=== PATIENT | female | born 1980 | race Hispanic/Latino ===

== ENCOUNTER → 2017-08-04 14:39 | Outpatient (CLI) | payer OTHER, MEDICAID, SELFPAY | DX: Z34.82 Encounter for supervision of other normal pregnancy, second trimester (principal); Z3A.16 16 weeks gestation of pregnancy; Z53.9 Procedure and treatment not carried out, unspecified reason ==

== ENCOUNTER → 2017-08-04 15:28 | Outpatient (CLI) | payer OTHER, MEDICAID, SELFPAY ==
[2017-08-04 15:42] LABS: Bacteria Urine None Seen; RBC Urine None Seen (0-5/HPF); WBC Urine None Seen (0-5/HPF)
[2017-08-04 16:19] LABS: Appearance Urine UA CLEAR; Bilirubin Urine UA NEGATIVE (NEGATIVE); Color Urine UA YELLOW; Glucose Urine UA NEGATIVE (Negative); Ketones Urine UA NEGATIVE (NEGATIVE); Leukocyte Esterase Urine UA NEGATIVE (NEGATIVE); Nitrite Urine UA Negative (Negative); Occult Blood Urine UA NEGATIVE (Negative); Protein Urine UA NEGATIVE (Negative); Specific Gravity Urine UA <=1.005 (1.000-1.035); Urobilinogen Urine UA 0.2 E.U./dL (0.2)
[2017-08-04 16:27] LABS: Prothrombin Time 10.7 SECONDS (10.1-12.7)
[2017-08-04 16:28] LABS: Add Manual Diff / Slide Review NO; Basophils Percent Auto 0.8 % (0-2); Eosinophils Percent Auto 6.8 % (2-4); Hematocrit 38.1 % (36-46); Hemoglobin 13.2 g/dL (12.0-16.0); Lymphocytes Percent Auto 16.3 % (25-40); Mean Corpuscular HGB Conc 34.6 % (30-36); Mean Corpuscular Hemoglobin 31.2 PG (26-34); Monocytes Percent Auto 4.7 % (3-14); Neutrophils Absolute Auto 5200 /uL (3000-5900); Neutrophils Percent Auto 71.4 % (50-75); Platelet Count 206 X10^3/uL (150-400); Red Blood Cell Count 4.23 X10^6/uL (4.0-5.2); Red Cell Distribution Width 13.5 % (11.6-14.8); White Blood Cell Count 7.3 X10^3/uL (4.5-11.0)
[2017-08-04 16:30] LABS: PTT Partial Thromboplastin Tim 27 SECONDS (26.4-36.2)
[2017-08-04 16:32] LABS: Glucose 82 mg/dL (70-100)
[2017-08-04 16:41] LABS: Culture Indicated Urine Cult Not Indicated; Urine Comments Microscopic Normal
[2017-08-04 17:05] LABS: Hepatitis B Surface Antigen NEGATIVE s/c (NEGATIVE); Rubella Antibody IgG 7.8 IU/mL (>15)
[2017-08-04 17:21] LABS: HIV 1 and 2 Antibody NEGATIVE (NEGATIVE); Hep C Virus Ab w/Reflex Quant NEGATIVE s/c (NEGATIVE)
[2017-08-09 07:38] LABS: HSV 2 IGG AB < 0.90 index (< 0.90)
[2017-08-11 09:52] LABS: Rapid Plasma Reagin NON-REACTIVE
[2017-08-14 14:45] LABS: AFP 42.7 ng/mL; Brief History NOT GIVEN; Calc Gestational Age 16.7; Hx of Neural Tube Defect N; Inhibin A Value 262 pg/mL; Method of Estimation US; Prev Pregnancy with Down Syndr NOT GIVEN
== END ==
DX: Z3A.16 16 weeks gestation of pregnancy (principal); Z34.82 Encounter for supervision of other normal pregnancy, second trimester
CPT/HCPCS: 80055; 82105; 82677; 82947; 84702; 85610; 85730; 86336; 86787; 86850; 86900; 86901; 87086

== ENCOUNTER 2017-09-05 12:14 | Outpatient (CLI) | payer OTHER, MEDICAID, SELFPAY | END 2017-09-05 12:50 | disposition home or self-care (01) | LOC: LABOR 12:55 → OB 09-06 09:20 | PROVIDERS: Family Provider Family Medicine | DX: Z34.82 Encounter for supervision of other normal pregnancy, second trimester (principal); R11.2 Nausea with vomiting, unspecified; R10.9 Unspecified abdominal pain | CPT/HCPCS: 59025; G0378; G0379 ==

== ENCOUNTER 2017-09-05 12:48 | Emergency (ER) | payer OTHER, MEDICAID, SELFPAY ==
[2017-09-05 13:03] VITALS: BP 101/60; PULSE 89; RESP 18; TEMP 36.2; O2SAT 100; BMI 25.2
--- NOTE | 2017-09-05 13:36 | ED_ITS ---
HPI - Nausea/Vomiting/Diarrhea General Chief complaint: Abdominal Pain Stated complaint: STOMACH PAIN AND VOMIT Time Seen by Provider: 09/05/17 13:18 Source: patient Mode of arrival: ambulatory Limitations: no limitations History of Present Illness HPI Narrative: Patient is a 21 week female who was just previously evaluated by Labor and delivery with a nonstress test and was told that the baby looked well. She was told that she was having some contractions. She is not having a vaginal bleeding. States that she does have left-sided pain is been vomiting since this morning. She states she does have a history of kidney stones and this feels somewhat like a kidney stone. She also states she has a history of irritable bowel syndrome. States the vomiting has been going on since this morning. Has not taken her home medications because of that. No recent travel. No recent antibiotics. Related Data Home Medications Medication Instructions Recorded Confirmed bupropion HCl SR 150 mg tablet,12 150 mg PO DAILY 08/04/17 09/05/17 hr sustained-release famotidine 20 mg tablet 20 mg PO DAILY 08/04/17 09/05/17 1 tab PO DAILY 08/04/17 09/05/17 vitamin,calcium,ldesorys-tkmz-mtezl acid tablet dextroamphetamine-amphetamine 10 mg PO DAILY 09/05/17 09/05/17 Previous Rx's Medication Instructions Recorded ondansetron 4 mg PO Q6-8H PRN #10 tab 09/05/17 Allergies Allergy/AdvReac Type Severity Reaction Status Date / Time Penicillins [PENICILLINS] Allergy Unknown RASH Verified 09/05/17 13:03 amoxicillin Allergy rash Verified 09/05/17 13:03 promethazine [From PHENERGAN] AdvReac Unknown TWITCH Verified 09/05/17 13:03 Review of Systems Constitutional Denies fatigue, Denies fever(s), Denies lethargy and Denies malaise ENT Ears, Nose, Mouth, and Throat: Denies dizziness Cardiovascular Denies chest pain, Denies syncope, Denies palpitations and Denies dyspnea Respiratory Denies cough and Denies dyspnea Gastrointestinal Gastrointestinal: Denies diarrhea, Reports nausea and Reports vomiting Genitourinary Denies abnormal vaginal bleeding, Denies hematuria, Denies dysuria, Denies flank pain and Denies vaginal discharge Musculoskeletal Reports myalgias and Reports arthralgias Integumentary/Breasts Denies lesions, Denies rash and Denies wounds Neurologic Denies dizziness and Denies syncope Endocrine Denies fatigue and Denies palpitations Hematologic/Lymphatic Denies easy bleeding and Denies easy bruising Exam Initial Vital Signs Initial Vital Signs: Vital Signs Temperature 97.1 F L 09/05/17 13:03 Pulse Rate 89 09/05/17 13:03 Respiratory Rate 18 09/05/17 13:03 Blood Pressure 101/60 09/05/17 13:03 Pulse Oximetry 100 09/05/17 13:03 Const General: cooperative, healthy appearing, comfortable, well developed, well groomed and acute distress [facility] Head: normal to inspection, normocephalic and atraumatic Resp Effort & Inspection: normal respiratory effort Auscultation: clear to auscultation bilaterally Cardio Rate: regular rate Rhythm: regular rhythm Pulses: radial pulses present GI Inspection: non-distended Palpation: soft, No firm and tender (Diffuse) Back/Spine/Pelvis Back: No CVA tenderness Skin Lesions: no lesions Rashes: no rashes Neuro General: alert, awake and oriented x3 Extrem General: normal to inspection and capillary refill normal Course Orders Ordered: ED Orders 09/05/17 13:58 Basic Metabolic Panel Stat Complete Blood Count AUTO DIFF Stat Discontinued Medications Sodium Chloride (Normal Saline 0.9%) 1,000 mls @ 1,000 mls/hr IV BOLUS ONE Stop: 09/05/17 14:41 Last Infusion: 09/05/17 16:09 Dose: 0 mls/hr Admin: 09/05/17 14:17 Dose: 1,000 mls/hr Morphine Sulfate (Morphine) 4 mg IV NOW ONE Stop: 09/05/17 14:00 Ondansetron HCl (Zofran) 4 mg IV NOW ONE Stop: 09/05/17 13:43 Last Admin: 09/05/17 14:17 Dose: 4 mg Vital Signs - 8 hr 09/05/17 13:03 09/05/17 14:27 09/05/17 15:49 Temperature 97.1 F L 98.9 F 98.9 F Pulse Rate 89 85 72 Respiratory Rate 18 16 18 Blood Pressure 101/60 Blood Pressure [Left Arm] 95/58 L 97/58 L Pulse Oximetry 100 100 100 MDM - Nausea/Vomiting/Diarrhea Medical Records Attestation: I reviewed the patient's medical records. Lab Data Attestation: I reviewed the patient's lab results. Result diagrams: 09/05/17 13:58 09/05/17 13:58 Lab Results 09/05/17 09/05/17 Range/Units 13:58 13:58 WBC 7.4 (4.5-11.0) X10^3/uL RBC 3.85 L (4.0-5.2) X10^6/uL Hgb 12.2 (12.0-16.0) g/dL Hct 35.6 L (36-46) % MCV 92.4 (80-100) fL MCH 31.6 (26-34) PG MCHC 34.2 (30-36) % RDW 13.5 (11.6-14.8) % Plt Count 208 (150-400) X10^3/uL Neut % (Auto) 76.6 H (50-75) % Lymph % (Auto) 12.8 L (25-40) % [place] % (Auto) 5.0 (3-14) % Eos % (Auto) 4.7 H (2-4) % Baso % (Auto) 0.9 (0-2) % Neut # (Auto) 5600 (3238-9915) /uL Sodium 137 (137-145) mmol/L Potassium 3.9 (3.4-5.1) mmol/L Chloride 105 (98-107) mmol/L Carbon Dioxide 25 (22-32) mmol/L BUN 7 (7-17) mg/dL Creatinine 0.40 L (0.52-1.04) mg/dL Estimated GFR > 60.0 (>60) mL/min BUN/Creatinine Ratio 17.5 (6-22) Glucose 81 (70-100) mg/dL Calcium 8.7 (8.4-10.2) mg/dL MDM Narrative Medical decision making narrative: Patient was given fluids here in the emergency department an states that her symptoms improved somewhat. She did tolerate small sips of water however still was somewhat nauseous. She does not have nausea medication at home. Will send home with a prescription for Zofran. Did have an NST by a labor and delivery prior to arrival here in the emergency department and patien reported that she was told that she was esperanza however was not in labor and the baby looked well. This was not available for me for evaluation. Will hold on further workup for now. Will send home with Bianca. Informed her she could take Tylenol for any discomfort. Informed her that she needed to increase her fluid intake. She does have a OB appointment on Monday of this week. She is instructed she needed to keep this appointment. Patient expressed understanding and agreement Discharge Plan Departure Patient Disposition: Home, Self-Care Clinical Impression: , Abdominal pain Discharge Date/Time: 09/05/17 16:11 Interventions: ED Discharge Assessment Last Done: 09/05/17 16:11 Instructions: DI for Abdominal Pain -- Early Activity Restrictions/Additional Instructions: Make sure you keep all of your scheduled medical appointments. Increase your fluid intake. Take all of your medications as directed. Return to the emergency department for any new or worsening symptoms Prescriptions: New ondansetron 4 mg tablet,disintegrating 4 mg PO Q6-8H PRN (Reason: nausea and vomiting) Qty: 10 RF: 0 No Action bupropion HCl [Wellbutrin SR] 150 mg tablet extended release 12 hr 150 mg PO DAILY RF: 0 famotidine [Pepcid] 20 mg tablet 20 mg PO DAILY RF: 0 prenat.vits,yoon,uzz-jbsc-vbhmc [ Vitamin] tablet 1 tab PO DAILY RF: 0 dextroamphetamine-amphetamine 5 mg tablet 10 mg PO DAILY RF: 0
[2017-09-05 14:07] LABS: Add Manual Diff / Slide Review NO; Basophils Percent Auto 0.9 % (0-2); Eosinophils Percent Auto 4.7 % (2-4); Hematocrit 35.6 % (36-46); Hemoglobin 12.2 g/dL (12.0-16.0); Lymphocytes Percent Auto 12.8 % (25-40); Mean Corpuscular HGB Conc 34.2 % (30-36); Mean Corpuscular Hemoglobin 31.6 PG (26-34); Mean Corpuscular Volume 92.4 fL (80-100); Neutrophils Absolute Auto 5600 /uL (3000-5900); Neutrophils Percent Auto 76.6 % (50-75); Platelet Count 208 X10^3/uL (150-400); Red Blood Cell Count 3.85 X10^6/uL (4.0-5.2); Red Cell Distribution Width 13.5 % (11.6-14.8); White Blood Cell Count 7.4 X10^3/uL (4.5-11.0)
[2017-09-05 14:15] LABS: BUN Creatinine Ratio 17.5 (6-22); Blood Urea Nitrogen 7 mg/dL (7-17); Calcium 8.7 mg/dL (8.4-10.2); Carbon Dioxide 25 mmol/L (22-32); Chloride 105 mmol/L (98-107); Estimated Glomerular Filt Rate > 60.0 mL/min (>60); Glucose 81 mg/dL (70-100); HEMOLYSIS < 15 (0-50); Potassium 3.9 mmol/L (3.4-5.1); Sodium 137 mmol/L (137-145)
[2017-09-05] MEDS: ONDANSETRON 4 MG/2 ML INJ IV (14:17)
[2017-09-05] MEDS: SODIUM CHLORIDE 0.9% 1,000 ML 1000 ML IV (14:17)
[2017-09-05 14:27] VITALS: BP 95/58; PULSE 85; RESP 16; TEMP 37.2; O2SAT 100
[2017-09-05 15:49] VITALS: BP 97/58; PULSE 72; RESP 18; TEMP 37.2; O2SAT 100
== END 2017-09-05 16:11 | disposition home or self-care (01) ==
PROVIDERS: Emergency Provider Emergency Medicine; Family Provider Family Medicine
DX: O26.899 Other specified pregnancy related conditions, unspecified trimester (principal); R10.9 Unspecified abdominal pain
CPT/HCPCS: 36591; 80048; 81003; 85025; 96361; 96374; 96375; 99283; 99284; J2405

== ENCOUNTER 2017-10-09 15:52 | Outpatient (CLI) | payer OTHER, MEDICAID, SELFPAY ==
[2017-10-09] MEDS: RHO(D) IMMUNE GLOBULIN 1,500 UNIT SYRINGE 1500 UNIT IM (17:20)
[2017-10-09 17:48] LABS: Hemoglobin 11.4 g/dL (12.0-16.0)
[2017-10-09 18:48] LABS: GTT (PREG) 1 Hour PP 50gm Dose 96 mg/dL (76-139)
== END 2017-10-09 17:30 | disposition home or self-care (01) ==
LOC: LABOR 15:57 → OB 10-13 16:40
PROVIDERS: Family Provider Family Medicine; PCP Family Medicine
DX: Z34.83 Encounter for supervision of other normal pregnancy, third trimester (principal); Z3A.26 26 weeks gestation of pregnancy
CPT/HCPCS: 36415; 59025; 59050; 82950; 85014; 85018; 86850; 96372; G0378; G0379; J2790

== ENCOUNTER 2017-12-02 16:11 | Emergency (ER) | payer OTHER, MEDICAID, SELFPAY ==
[2017-12-02 16:16] VITALS: BP 111/70; PULSE 99; RESP 20; TEMP 36.5; O2SAT 99
--- NOTE | 2017-12-02 16:39 | ED.SKABFB ---
HPI - Skin/Abscess/Foreign Bdy <MASOUD Reilly - Last Filed: 12/02/17 22:19> General Chief complaint: Skin/Abscess/Foreign Body Stated complaint: 34wks preg; numbness,tingling and swelling of feet Time Seen by Provider: 12/02/17 16:39 Source: patient Mode of arrival: ambulatory Limitations: no limitations History of Present Illness HPI narrative: 37-year-old female who is 34 weeks Ob and states has a history of preeclampsia Who was a nonsmoker. here for complaints of having swelling to her bilateral lower extremities and hands starting yesterday. She reports that she has a sensation of pins and needles to the bottom of her feet when she walks. She is ambulatory at this time. She denies any shortness of breath or chest pain. Does state she does have a mild headache. She reports that she has tolerated p.o. intake well. No urinary symptoms. She denies any vaginal discharge or bleeding. She feels that the baby is moving well. She denies any other concerns or complai Related Data Home Medications Medication Instructions Recorded Confirmed bupropion HCl SR 150 mg tablet,12 150 mg PO DAILY 08/04/17 09/05/17 hr sustained-release famotidine 20 mg tablet 20 mg PO DAILY 08/04/17 09/05/17 1 tab PO DAILY 08/04/17 09/05/17 vitamin,calcium,locvidbi-itoy-bathh acid tablet dextroamphetamine-amphetamine 10 mg PO DAILY 09/05/17 09/05/17 Previous Rx's Medication Instructions Recorded ondansetron 4 mg PO Q6-8H PRN #10 tab 09/05/17 hydroxyprogesterone(PF)(preg 275 mg SUBCUT QWEEK #1.1 ml NS 11/02/17 preserv) 275 mg/1.1 mL subcut auto-inject Allergies Allergy/AdvReac Type Severity Reaction Status Date / Time Penicillins [PENICILLINS] Allergy Unknown RASH Verified 09/05/17 13:03 amoxicillin Allergy rash Verified 09/05/17 13:03 promethazine [From PHENERGAN] AdvReac Unknown TWITCH Verified 09/05/17 13:03 Review of Systems <MASOUD Reilly - Last Filed: 12/02/17 22:19> Constitutional Denies chills, Denies fever(s), Denies lethargy and Denies weakness Eyes Denies change in vision, Denies eye discharge, Denies irritation and Denies loss of vision ENT Ears, Nose, Mouth, and Throat: Denies change in voice, Denies neck pain and Denies sore throat Cardiovascular Denies chest pain, Denies irregular heart rhythm, Denies lightheadedness, Denies palpitations, Denies dyspnea, Denies dyspnea on exertion and Denies orthopnea Respiratory Denies cough, Denies dyspnea, Denies dyspnea on exertion and Denies wheezing Gastrointestinal Gastrointestinal: Denies abdominal pain, Denies change in bowel habits, Denies diarrhea, Denies nausea and Denies vomiting Genitourinary Denies hematuria, Denies flank pain, Denies urinary incontinence and Denies urinary urgency Musculoskeletal Denies neck pain Comments: swelling to hands and feet bilaterally Integumentary/Breasts Denies pruritus, Denies erythema, Denies rash and Denies wounds Neurologic Denies confusion, Denies loss of vision and Denies weakness Psychiatric Denies anxiety, Denies confusion, Denies depression, Denies homicidal ideation and Denies suicidal ideation Endocrine Denies palpitations Hematologic/Lymphatic Denies easy bruising Allergic/Immunologic Denies wheezing Exam <MASOUD Reilly - Last Filed: 12/02/17 22:19> Initial Vital Signs Initial Vital Signs: Vital Signs Temperature 97.7 F 12/02/17 16:16 Pulse Rate 99 H 12/02/17 16:16 Respiratory Rate 20 12/02/17 16:16 Blood Pressure 111/70 12/02/17 16:16 Pulse Oximetry 99 12/02/17 16:16 Const General: cooperative and well developed Nutritional Appearance: well nourished Orientation: alert, awake, oriented x3 and not confused [facility] Mouth: oral mucosae normal and oropharynx normal Eyes Conjunctivae: conjunctivae normal Sclera: sclerae normal Pupils: PERRL EOM: EOM intact bilaterally Resp Effort & Inspection: normal respiratory effort, able to speak in complete sentences, no respiratory distress and no use of accessory muscles Auscultation: clear to auscultation bilaterally, no rales, no rhonchi and no wheezes Cardio Rate: regular rate Rhythm: regular rhythm Heart Sounds: no click, no gallops, no murmurs and no rubs Pulses: normal peripheral pulses GI Inspection: non-distended Palpation: soft, no hepatosplenomegaly, No guarding, No pulsatile mass and No tender Auscultation: normal bowel sounds Back/Spine/Pelvis Back: No CVA tenderness Skin General: no rashes or lesions noted, No jaundice and No petechiae Neuro General: alert, oriented x3, gait normal and no focal motor deficits Speech: speech normal Extrem Other: no swelling appreciated to all 4 extremities. Distal sensation is intact to all extremities. Distal pulses intact all extremities. Distal range of motion intact to all extremities. <Reuben Begum DO - Last Filed: 12/05/17 05:58> Initial Vital Signs Initial Vital Signs: Vital Signs Temperature 97.7 F 12/02/17 16:16 Pulse Rate 99 H 12/02/17 16:16 Respiratory Rate 20 12/02/17 16:16 Blood Pressure 111/70 12/02/17 16:16 Pulse Oximetry 99 12/02/17 16:16 Course <MASOUD Reilly - Last Filed: 12/02/17 22:19> Orders Ordered: Discontinued Medications Acetaminophen (Tylenol) 650 mg PO NOW ONE Stop: 12/02/17 17:16 Last Admin: 12/02/17 17:35 Dose: 650 mg Vital Signs - 8 hr 12/02/17 16:16 12/02/17 17:00 Temperature 97.7 F Pulse Rate 99 H 93 H Respiratory Rate 20 15 Blood Pressure 111/70 Blood Pressure [Left Arm] 102/65 Pulse Oximetry 99 99 <Reuben Begum DO - Last Filed: 12/05/17 05:58> Orders Ordered: Discontinued Medications Acetaminophen (Tylenol) 650 mg PO NOW ONE Stop: 12/02/17 17:16 Last Admin: 12/02/17 17:35 Dose: 650 mg Vital Signs - 8 hr 12/02/17 16:16 12/02/17 17:00 Temperature 97.7 F Pulse Rate 99 H 93 H Respiratory Rate 20 15 Blood Pressure 111/70 Blood Pressure [Left Arm] 102/65 Pulse Oximetry 99 99 MDM - Skin/Abscess/Foreign Bdy <MASOUD Reilyl - Last Filed: 12/02/17 22:19> Lab Data Result diagrams: 12/02/17 17:30 12/02/17 17:30 Lab Results 09/22/18 09/22/18 09/22/18 Range/Units 17:30 17:30 17:30 WBC 7.7 (4.5-11.0) X10^3/uL RBC 3.69 L (4.0-5.2) X10^6/uL Hgb 11.8 L (12.0-16.0) g/dL Hct 34.3 L (36-46) % MCV 92.9 (80-100) fL MCH 32.0 (26-34) PG MCHC 34.5 (30-36) % RDW 13.4 (11.6-14.8) % Plt Count 180 (150-400) X10^3/uL Neut % (Auto) 67.8 (50-75) % Lymph % (Auto) 18.1 L (25-40) % [place] % (Auto) 8.7 (3-14) % Eos % (Auto) 4.6 H (2-4) % Baso % (Auto) 0.8 (0-2) % Neut # (Auto) 5200 (5669-2937) /uL Sodium 140 (137-145) mmol/L Potassium 3.9 (3.4-5.1) mmol/L Chloride 107 (98-107) mmol/L Carbon Dioxide 25 (22-32) mmol/L BUN 8 (7-17) mg/dL Creatinine 0.50 L (0.52-1.04) mg/dL Estimated GFR > 60.0 (>60) mL/min BUN/Creatinine Ratio 16.0 (6-22) Glucose 80 (70-100) mg/dL Calcium 9.0 (8.4-10.2) mg/dL Total Bilirubin 0.8 (0.2-1.3) mg/dL AST 27 (14-36) IU/L ALT 36 (9-52) IU/L Alkaline Phosphatase 124 (38-126) U/L Total Protein 6.2 L (6.3-8.2) g/dL Albumin 3.3 L (3.5-5.0) g/dL Globulin 2.9 (1.7-4.1) g/dL Albumin/Globulin Ratio 1.1 (1.0-2.8) Urine Color Yellow Urine Appearance Clear Urine pH 7.0 (4.5-8.0) Ur Specific [place] 1.010 (1.000-1.035) Urine Protein Negative (Negative) Urine Glucose (UA) Negative (Normal) g/dL Urine Ketones Negative (NEGATIVE) Urine Occult Blood Trace-intact (Negative) Urine Nitrate Negative (Negative) Urine Bilirubin Negative (NEGATIVE) Urine Urobilinogen 0.2 (0.2) E.U./dL Ur Leukocyte Esterase Negative (NEGATIVE) Urine RBC None seen (0-5/HPF) Urine WBC 0-1/hpf (0-5/HPF) Ur Squamous Epith Cells 0-1 /hpf Urine Bacteria Occasional (0-1) (None) Ur Culture Indicated? Cult not indicated Micro UA Comment Not Reportable MDM Narrative Medical decision making narrative: CBC shows mild anemia. Chem panel was obtained was negative for any acute findings. Urinalysis was negative for UTI and also protein. Her blood pressure and vital signs were stable while in the emergency room. She did not have elevated blood pressure. Discussed case with Dr. Christian Ob who feels the patient should be discharged from the emergency room go to OB for monitoring of the baby to ensure everything is okay. No signs and symptoms of preeclampsia are seen on exam or on laboratory results. Follow up with OB. For any worsening symptoms return emergency room. <Reuben Begum, DO - Last Filed: 12/05/17 05:58> Lab Data Lab Results 12/02/17 12/02/17 12/02/17 Range/Units 17:30 17:30 17:30 WBC 7.7 (4.5-11.0) X10^3/uL RBC 3.69 L (4.0-5.2) X10^6/uL Hgb 11.8 L (12.0-16.0) g/dL Hct 34.3 L (36-46) % MCV 92.9 (80-100) fL MCH 32.0 (26-34) PG MCHC 34.5 (30-36) % RDW 13.4 (11.6-14.8) % Plt Count 180 (150-400) X10^3/uL Neut % (Auto) 67.8 (50-75) % Lymph % (Auto) 18.1 L (25-40) % [place]pp % (Auto) 8.7 (3-14) % Eos % (Auto) 4.6 H (2-4) % Baso % (Auto) 0.8 (0-2) % Neut # (Auto) 5200 (3008-9852) /uL Sodium 140 (137-145) mmol/L Potassium 3.9 (3.4-5.1) mmol/L Chloride 107 (98-107) mmol/L Carbon Dioxide 25 (22-32) mmol/L BUN 8 (7-17) mg/dL Creatinine 0.50 L (0.52-1.04) mg/dL Estimated GFR > 60.0 (>60) mL/min BUN/Creatinine Ratio 16.0 (6-22) Glucose 80 (70-100) mg/dL Calcium 9.0 (8.4-10.2) mg/dL Total Bilirubin 0.8 (0.2-1.3) mg/dL AST 27 (14-36) IU/L ALT 36 (9-52) IU/L Alkaline Phosphatase 124 (38-126) U/L Total Protein 6.2 L (6.3-8.2) g/dL Albumin 3.3 L (3.5-5.0) g/dL Globulin 2.9 (1.7-4.1) g/dL Albumin/Globulin Ratio 1.1 (1.0-2.8) Urine Color Yellow Urine Appearance Clear Urine pH 7.0 (4.5-8.0) Ur Specific [place] 1.010 (1.000-1.035) Urine Protein Negative (Negative) Urine Glucose (UA) Negative (Normal) g/dL Urine Ketones Negative (NEGATIVE) Urine Occult Blood Trace-intact (Negative) Urine Nitrate Negative (Negative) Urine Bilirubin Negative (NEGATIVE) Urine Urobilinogen 0.2 (0.2) E.U./dL Ur Leukocyte Esterase Negative (NEGATIVE) Urine RBC None seen (0-5/HPF) Urine WBC 0-1/hpf (0-5/HPF) Ur Squamous Epith Cells 0-1 /hpf Urine Bacteria Occasional (0-1) (None) Ur Culture Indicated? Cult not indicated Micro UA Comment Not Reportable Discharge Plan Departure Patient Disposition: Home Clinical Impression: Swelling of lower extremity during Discharge Date/Time: 12/02/17 18:34 Interventions: ED Discharge Assessment Last Done: 12/02/17 18:34 Instructions: Managing Symptoms of Activity Restrictions/Additional Instructions: laboratory results today were unremarkable. Urinalysis was negative. No signs swelling seen during exam today. swelling to lower extremities may be due to dependent edema. If the swelling to lower extremities use elevation to help reduce the swelling. Follow up at OB to evaluate the baby. Follow up with OB in the next few days for re-evaluation. For any worsening symptoms return to the emergency room. Prescriptions: No Action hydroxyprogest(PF)(preg presv) 275 mg/1.1 mL auto-injector 275 mg SUBCUT QWEEK Qty: 1.1 RF: 2 bupropion HCl [Wellbutrin SR] 150 mg tablet extended release 12 hr 150 mg PO DAILY RF: 0 famotidine [Pepcid] 20 mg tablet 20 mg PO DAILY RF: 0 prenat.vits,yoon,pbl-ktpe-cmqgn [ Vitamin] tablet 1 tab PO DAILY RF: 0 dextroamphetamine-amphetamine 5 mg tablet 10 mg PO DAILY RF: 0 ondansetron 4 mg tablet,disintegrating 4 mg PO Q6-8H PRN (Reason: nausea and vomiting) Qty: 10 RF: 0 Referrals: Jonh Nascimento MD [Primary Care Provider] - <Reuben Begum DO - Last Filed: 12/05/17 05:58> Cosign ED Attending [place] Attestation: I was immediately available in the department for consultation. Documentation has been reviewed. I agree with assessment and plan.
[2017-12-02 17:00] VITALS: BP 102/65; PULSE 93; RESP 15; O2SAT 99
[2017-12-02 17:35] LABS: RBC Urine None Seen (0-5/HPF)
[2017-12-02] MEDS: ACETAMINOPHEN 325 MG TABLET 650 MG PO (17:35)
[2017-12-02 17:38] LABS: Appearance Urine UA CLEAR; Bilirubin Urine UA NEGATIVE (NEGATIVE); Color Urine UA YELLOW; Glucose Urine UA NEGATIVE (Normal); Ketones Urine UA NEGATIVE (NEGATIVE); Leukocyte Esterase Urine UA NEGATIVE (NEGATIVE); Nitrite Urine UA Negative (Negative); Occult Blood Urine UA TRACE-INTACT (Negative); Protein Urine UA NEGATIVE (Negative); Urobilinogen Urine UA 0.2 E.U./dL (0.2)
[2017-12-02 17:41] LABS: Add Manual Diff / Slide Review NO; Basophils Percent Auto 0.8 % (0-2); Eosinophils Percent Auto 4.6 % (2-4); Hematocrit 34.3 % (36-46); Hemoglobin 11.8 g/dL (12.0-16.0); Lymphocytes Percent Auto 18.1 % (25-40); Mean Corpuscular HGB Conc 34.5 % (30-36); Mean Corpuscular Volume 92.9 fL (80-100); Monocytes Percent Auto 8.7 % (3-14); Neutrophils Absolute Auto 5200 /uL (3000-5900); Neutrophils Percent Auto 67.8 % (50-75); Platelet Count 180 X10^3/uL (150-400); Red Blood Cell Count 3.69 X10^6/uL (4.0-5.2); Red Cell Distribution Width 13.4 % (11.6-14.8); White Blood Cell Count 7.7 X10^3/uL (4.5-11.0)
[2017-12-02 18:03] LABS: Alanine Aminotransferase 36 IU/L (9-52); Albumin 3.3 g/dL (3.5-5.0); Albumin Globulin Ratio 1.1 (1.0-2.8); Alkaline Phosphatase 124 U/L (38-126); Aspartate Aminotransferase 27 IU/L (14-36); Bilirubin Total 0.8 mg/dL (0.2-1.3); Blood Urea Nitrogen 8 mg/dL (7-17); Carbon Dioxide 25 mmol/L (22-32); Chloride 107 mmol/L (98-107); Estimated Glomerular Filt Rate > 60.0 mL/min (>60); Globulin 2.9 g/dL (1.7-4.1); Glucose 80 mg/dL (70-100); HEMOLYSIS < 15 (0-50); Potassium 3.9 mmol/L (3.4-5.1); Sodium 140 mmol/L (137-145); Total Protein 6.2 g/dL (6.3-8.2)
[2017-12-02 18:06] LABS: Bacteria Urine Occasional (0-1); Culture Indicated Urine Cult Not Indicated; Squamous Epithelial Cell Urine 0-1 /HPF; WBC Urine 0-1/HPF (0-5/HPF)
== END 2017-12-02 18:34 | disposition home or self-care (01) ==
PROVIDERS: Emergency Provider Nurse Practitioner Family; Family Provider Family Medicine; PCP Family Medicine
DX: O26.893 Other specified pregnancy related conditions, third trimester (principal); M79.89 Other specified soft tissue disorders; Z3A.34 34 weeks gestation of pregnancy
CPT/HCPCS: 36415; 59025; 80053; 81001; 85025; 99283; G0378; G0379

== ENCOUNTER 2017-12-02 18:30 | Outpatient (CLI) | payer SELFPAY ==
[2017-12-02 19:26] VITALS: BP 105/66; PULSE 86; RESP 17; TEMP 36.3
== END 2017-12-02 19:15 | disposition home or self-care (01) ==
LOC: LABOR 12-05 07:32 → OB 12-05 07:32
PROVIDERS: Family Provider Family Medicine; PCP Family Medicine; Visit Provider Obstetrics & Gynecology
DX: Z34.83 Encounter for supervision of other normal pregnancy, third trimester (principal); Z3A.33 33 weeks gestation of pregnancy; R20.1 Hypoesthesia of skin
CPT/HCPCS: 59025; G0378; G0379

== ENCOUNTER → 2017-12-15 10:01 | Outpatient (CLI) | payer OTHER, MEDICAID, SELFPAY ==
[2017-12-16 16:24] LABS: Strep Grp B PCR NEG for Grp B Strep
== END ==
PROVIDERS: Family Provider Family Medicine; PCP Family Medicine
DX: Z34.83 Encounter for supervision of other normal pregnancy, third trimester (principal)
CPT/HCPCS: 87653

== ENCOUNTER 2017-12-20 21:12 | Outpatient (CLI) | payer OTHER, MEDICAID, SELFPAY ==
--- NOTE | 2017-12-20 21:47 | PM.OBTRLD ---
Visit Information Visit Information Date of evaluation: 12/20/17 Primary OB Provider: John Garcia Reason for Evaluation: Yes rule out labor Vital Signs Vital Signs: Blood pressure 118/75, pulse of 100, temperature 97.8 PFSH Social History Smoking Status: Never smoker Review of Systems Review of Systems Patient complaining of increasingly frequent contractions. Increased vaginal discharge but no rupture membranes no bleeding. Good movement. No signs or symptoms of preeclampsia. All systems reviewed & are unremarkable except as noted in HPI and below Evaluation Evaluation Baseline heart rate: 130 Variability: Moderate (11-25) monitor accelerations: Present monitor decelerations: Absent Contraction Frequency (minutes): 30 Uterine Contraction Intensity: Mild Category of Tracing: I Cervical dilation (cm): 0 Cervical effacement (%): 0 Diagnosis, Plan/Disposition Final Diagnosis (1) 36 weeks gestation of : Current Visit: Yes Status: Acute (2) Previous section: Current Visit: No Status: Chronic (3) History of threatened premature labor: Current Visit: No Status: Chronic Plan/Disposition Plan: Rare contractions with no cervical change. Patient was discharged home to follow-up on routine visit or return if her contractions increase
== END 2017-12-21 00:13 | disposition home or self-care (01) ==
LOC: LABOR 22:59 → OB 12-22 12:40
PROVIDERS: Family Provider Family Medicine; PCP Family Medicine; Visit Provider Specialist
DX: Z34.83 Encounter for supervision of other normal pregnancy, third trimester (principal); O34.219 Maternal care for unspecified type scar from previous cesarean delivery; Z3A.36 36 weeks gestation of pregnancy
CPT/HCPCS: 59025; G0378; G0379

== ENCOUNTER 2017-12-25 23:47 | Inpatient (IN) | payer OTHER, MEDICAID, SELFPAY ==
[2017-12-26] VITALS (11 sets, daily range): BP systolic 80–144; BP diastolic 42–74; PULSE 83–110; RESP 11–21; TEMP 36.2; O2SAT 99–100
--- NOTE | 2017-12-26 | PATH_ITS ---
[facility] Accession Number: [id number] . 01 Material submitted: . BILATERAL FALLOPIAN TUBE SEGMENTS . 02 Diagnosis: Bilateral Fallopian Tube Segments, Bilateral Tubal Ligation: Cross-sections of segments of fallopian tube x2. No atypia identified. MRV/12/28/2017 . 02 Electronically signed: . Katerine Coppola MD, Pathologist NPI- [id number] . 01 Gross description: . Received in formalin, labeled bilateral fallopian tube segments, are two unoriented nonfimbriated segments of fallopian tube (segment #1: length-1.0 cm, diameter-0.4 cm; segment #2: length-1.5 cm, diameter-0.5 cm). The serosa is ness-diaz smooth and shiny. The lumens are diaz and unremarkable. Serially sectioned and entirely submitted in cassette A1. ([id number]) /MRV . 02 Pathologist provided ICD-10: Z30.2 . 02 CPT . 356098 Specimen Comment: A duplicate report has been generated due to demographic updates. Performed at: 01 [facility] [address] [place] [address], [place], [place] [id number] MD Reagan Nichols MD Phone: [phone] Performed at: 02 [facility] [address] [place], [place] [id number] MD Gerry Scott MD Phone: [phone]
--- NOTE | 2017-12-26 02:08 | SUR.OPER ---
Supine on Padded OR bed, head on pillow, safety belt at thigh, arms secured on padded arm boards at <90 degrees abduction. Bump under right buttock. Legs uncrossed with pillow under knees, gel pad to heels, tape over blanket to lower legs.
[2017-12-26] MEDS: LACTATED RINGERS 1,000 ML 150 ML IV ×2 (02:25→03:16)
[2017-12-26] MEDS: CEFAZOLIN 2 GM/100 ML FROZ.PIGGY IV (02:35)
--- NOTE | 2017-12-26 03:42 | SUR.OPER ---
Cord blood and placenta to L&D with OB Rn. TOB live male at 0253.
--- NOTE | 2017-12-26 03:45 | SUR.PHASEI ---
Pt c/o mild nausea but then declined medication. Tremors present but pt declined narcotic Demerol.
--- NOTE | 2017-12-26 04:12 | SUR.PHASEI ---
Difficutly obtaining bp due to shaking, cuff moved to leg, bp 155/55
[2017-12-26] MEDS: MEPERIDINE 50 MG/ML 15 MG IV (04:18)
--- NOTE | 2017-12-26 04:24 | SUR.PHASEI ---
Pt agreed to a small amt of Demerol for tremors, medicated with 15mg. Report called to Kayla. Tremors improved.
--- NOTE | 2017-12-26 04:44 | SUR.PHASEI ---
Pt transferred to the Center with YOLA Gamble. Report to [facility]. VS stable. IV saline locked. Fundus and lochia checked with RN, Fundus massaged by RN. Scant shadow drainage [facility]. Partida patent, urine clear, yellow. Spinal approx t10.
[2017-12-26] MEDS: ONDANSETRON 4 MG/2 ML INJ IV (07:49)
[2017-12-26 08:04] LABS: Hematocrit 34.6 % (36-46); Hemoglobin 11.8 g/dL (12.0-16.0)
[2017-12-26] MEDS: KETOROLAC 30 MG/ML VIAL IV ×3 (09:06→22:33)
[2017-12-26] MEDS: LACTATED RINGERS 1,000 ML 100 ML IV (12:36)
--- NOTE | 2017-12-26 18:53 | PM.PREOP ---
Pre-operative Note Interval Note Pre-op Check: Yes History & Physical exam performed today by Physician Changes: No
--- NOTE | 2017-12-26 20:12 | PM.GYNOP.1 ---
Operative Date/Time/Diagnoses Date of procedure: 12/26/17 Time of procedure: 03:45 Pre-op diagnosis: 37 weeks gestation Active labor Previous section Post-op diagnosis: same Procedure: Procedures Operation Date: 12/26/17 02:00 Actual Procedures Side Surgeon p Section with bilateral tubal ligation Xin Christian MD Indications: 37 weeks gestation Active labor Previous section Desires permanent sterilization Surgeon: Xin Christian Coffee Maker: Daja Marinelli Anesthesia Type: Spinal Operative Notes Findings: Live male infant Very thin lower uterine segment Normal tubes and ovaries Desires permanent sterilization Closure Type: primary Specimen(s): other (Cord bloods, placenta) Applied: catheter Estimated blood loss (mL): 500 Blood products transfused: none Procedure in detail: The patient was taken to the operating room where she was placed in the seated position. Spinal anesthesia with Duramorph was administered. The patient was then placed in the dorsal supine position with a leftward tilt. She was prepped and draped in the usual sterile fashion. A timeout was performed. After spinal analgesia was found to be adequate, a Pfannenstiel skin incision was made through the previous incision and carried through to the underlying layer fascia. The fascia was nicked in the midline, and the incision extended bilaterally with the Saldana scissors. The superior aspect of the fascial incision was grasped with a Harleton clamps, elevated, and the underlying rectus muscles dissected off sharply and bluntly. Attention was then turned to the inferior aspect of this incision which in a similar fashion was grasped with a Juani clamps, elevated, and the underlying rectus muscles dissected off sharply and bluntly. The rectus muscles were in the midline. The peritoneum was identified, grasped between 2 hemostats, and entered sharply with the Metzenbaum scissors. This incision was extended superiorly and inferiorly with good visualization of the bladder. The bladder blade was inserted. The vesicouterine peritoneum was identified, grasped with the pickup, and entered sharply with the Metzenbaum scissors. This incision was extended bilaterally, and the bladder flap was created digitally. The bladder blade was reinserted. The lower uterine segment was found to be very thin. The lower uterine segment was incised in a transverse fashion with the scalpel. Upon entering the amniotic sac there was moderate amount of clear amniotic fluid. The infant's head was delivered with vacuum assistance. The nose and mouth were suctioned with bulb suction. The remainder of the body delivered without difficulty. The cord was double clamped and cut. The infant was handed off to waiting RN and RT. The placenta was delivered manually. The uterus was cleared of all clots and debris. The uterine incision was repaired with #1 chromic in a running interlocking fashion, and a second layer the same suture was used for an imbricating layer. Hemostasis was achieved. The tubes and ovaries were examined and were found to be normal. The right tube was grasped with a Rudi and carried out to the fimbriated end. [address] to the distal limb a 3 cm segment of tube was ligated with oh plain chromic x-2. A 1 cm segment of tube was excised. This was repeated on the patient's left tube. Hemostasis was achieved. The gutters were cleared of all clots and debris. The bladder flap was reapproximated using 2-0 Vicryl in a running fashion. The parietal peritoneum was closed using 2-0 Vicryl in a running fashion. The fascia was reapproximated using 0 Vicryl in a running fashion. The subcutaneous layer was copiously irrigated with warm normal saline. 5 simple interrupted sutures of 3-0 Vicryl were placed to reapproximate the subcutaneous layer. The skin was closed with 4-0 undyed Vicryl in a subcuticular fashion. Steri-Strips were placed. An Aquacell dressing was placed. The uterus was expressed of a small amount of old blood. Sponge, lap, and instrument counts were correct x-2. The patient tolerated the procedure well, and was taken to PACU in stable condition. Complications: none Post-operative Condition: stable Disposition: PACU Plan for aftercare: To Center after recovery
[2017-12-27] MEDS: DOCUSATE 250 MG CAPSULE PO (09:16)
[2017-12-27] MEDS: OXYCODONE/ACETAMINOPHEN 5/325 TABLET 2 TAB PO (13:37)
[2017-12-27] MEDS: IBUPROFEN 600 MG TABLET PO (13:37)
[2017-12-27 15:00] VITALS: BP 108/66; PULSE 100; RESP 14; TEMP 36.2
[2017-12-27] MEDS: OXYCODONE/ACETAMINOPHEN 5/325 TABLET 1 TAB PO (16:31)
--- NOTE | 2018-03-23 09:47 | P.PNOB_ITS ---
Subjective - OB Patient comments: no complaints, pain well controlled and tolerating diet [place] baby status: doing well feeding status: exclusively breast feeding Date Patient Seen: 12/27/17 Time Patient Seen: 07:30 Exam Vital Signs (past 8 hours): Oxygen Delivery Method Room Air Narrative Exam Narrative: Generally: Patient is sitting up in bed, no acute distress Lungs: Clear to auscultation bilaterally Cardiovascular: Regular rate and rhythm Abdomen: Soft and flat. Good bowel sounds Fundus: Firm at U -1 Incision: Clean dry and intact with Aquacel dressing Extremities: Trace edema, negative Homans Objective Labs Result Diagrams: 12/26/17 06:39 Assessment & Plan (1) Status post repeat low transverse section: Status: Acute Current Visit: No Plan day: 1 plan OB: routine postop care Time Spent With Patient Total time spent is greater than 50% in coordination of care (as documented) at patient's floor/unit and/or counseling patient: less than 15 minutes
--- NOTE | 2018-03-23 09:52 | PM.DS.1 ---
History of Present Illness Date Patient Seen: 12/28/17 Time Patient Seen: 09:00 Chief complaint: evaluation of labor Narrative: Patient is a 37-year-old postop day # 2 status post repeat low-transverse section doing very well Discharge Providers Date of admission: 12/25/17 23:47 Primary care physician: John Nascimento MD Consults: 12/27/17 03:35 Consult to [employer] Supervisor Routine Comment: Discharge provider: Xin Christian MD Discharge Date: 12/28/17 Summary Discharge Diagnosis: Previous section Active labor Repeat low-transverse section Hospital Course: Patient is a 37-year-old who presented in active labor. She had a history of a previous section. She underwent a repeat low-transverse section without complication. Her postoperative course was unremarkable and she was discharged home on postop day # 2 tolerating a diet, pain well controlled, ambulating, going well, and voiding without the catheter. Exam Vital Signs (past 8 hours): Oxygen Delivery Method Room Air Narrative Exam Narrative: Generally: Patient is sitting up in bed, no acute distress Lungs: Clear to auscultation bilaterally Cardiovascular: Regular rate and rhythm Abdomen: Soft and flat. Fundus: Firm U -2 Incision: Clean dry and intact with Aquacel dressing Extremities: Negative Homans, trace edema Objective Labs Result Diagrams: 12/26/17 06:39 Discharge Plan Discharge Plan Patient Disposition: Home Discharge comment: Call with fever, chills, redness or drainage around incision or bleeding vaginally more than a pad in an hour Discharge Med Rec/Prescriptions Prescriptions: New oxycodone-acetaminophen [Percocet] 5-325 mg tablet 1 tab PO Q4-6H PRN (Reason: pain) Qty: 30 RF: 0 Continue bupropion HCl [Wellbutrin SR] 150 mg tablet extended release 12 hr 150 mg PO DAILY RF: 0 prenat.vits,yoon,qav-fpoo-uerhw [ Vitamin] tablet 1 tab PO DAILY RF: 0 Discontinued hydroxyprogest(PF)(preg presv) 275 mg/1.1 mL auto-injector 275 mg SUBCUT QWEEK Qty: 1.1 RF: 2 famotidine [Pepcid] 20 mg tablet 20 mg PO DAILY RF: 0 dextroamphetamine-amphetamine 5 mg tablet 10 mg PO DAILY RF: 0 ondansetron 4 mg tablet,disintegrating 4 mg PO Q6-8H PRN (Reason: nausea and vomiting) Qty: 10 RF: 0 Follow up/Referrals: Xin Christian MD [Physician] - 01/02/18 11:00 am (For Aquacell removal) John Nascimento MD [Primary Care Provider] - 1 Week (Aquacel removal) Provider Discharge Instructions Diet: Diet as Tolerated Activity: No heavy lifting No intercourse Skin/Wound/Dressing Care Report to your healthcare provider any signs of infection, such as:: chills, fever, increased pain and unusual drainage Dressing: Do not remove Visit Report/Discharge Packet Instructions: DI for Stand Alone Forms: Discharge: Care Visit Report Forms: Stroke Signs & Symptoms Discharge Data Primary Care Provider: John Nascimento Attending Provider: Xin Christian Admit Date/Time: 12/25/17 23:47 Discharges patient from system. Discharge Date/Time: 12/27/17 18:30
== END 2017-12-27 18:30 | disposition home or self-care (01) | DRG 540 ==
PROVIDERS: Admitting Provider Obstetrics & Gynecology; Family Provider Family Medicine; PCP Family Medicine; Visit Provider Obstetrics & Gynecology
PROC: 10D00Z1 Extraction of Products of Conception, Low, Open Approach (ICD-10-PCS; CPT 59514; principal; 2017-12-26 02:00)
DX: O75.82 Onset (spontaneous) of labor after 37 completed weeks of gestation but before 39 completed weeks gestation, with delivery by (planned) cesarean section (principal); Z3A.37 37 weeks gestation of pregnancy; Z30.2 Encounter for sterilization; O34.219 Maternal care for unspecified type scar from previous cesarean delivery; O99.52 Diseases of the respiratory system complicating childbirth; J45.909 Unspecified asthma, uncomplicated; Z37.0 Single live birth
CPT/HCPCS: 58611; 59050; 59514; 85014; 85018; 88302; G0379; J0690; J1885; J2175; J2274; J2405; J2590; J3010

== ENCOUNTER → 2018-01-02 12:05 | Outpatient (CLI) | payer OTHER, MEDICAID, SELFPAY ==
--- NOTE | 2018-01-02 12:06 | DI.US.S_ITS ---
PROCEDURE: US PERIPH VENOUS LOW EXTREM LT INDICATIONS: R/O DVT TECHNIQUE: Real-time imaging, as well as color and pulse Doppler interrogation, were performed of the lower extremity deep veins from the inguinal ligament to the popliteal fossa. COMPARISON: None. FINDINGS: The deep veins are normally compressible, and free of intraluminal thrombus. Color and pulse Doppler demonstrate normal phasic intraluminal flow. There is normal augmentation response to distal compression maneuver. IMPRESSION: No evidence of left lower extremity deep vein thrombosis. Dictated by: Pipo Balderrama M.D. on 01/02/2018 at 13:56 Approved by: Pipo Balderrama M.D. on 01/02/2018 at 13:56
== END ==
PROVIDERS: Family Provider Family Medicine; PCP Family Medicine; Visit Provider Obstetrics & Gynecology
DX: M79.605 Pain in left leg (principal)
CPT/HCPCS: 93971